=== PATIENT | male | born 2000 | race Caucasian/White ===

== ENCOUNTER 2021-10-01 23:46 | Emergency (ER) | payer MEDICAID, OTHER ==
[2021-10-01] MEDS ORDERED: Adenosine 6 MG/2 ML SDV IVPUSH ONE (23:59)
[2021-10-01] MEDS ORDERED: Ondansetron 4 MG/2 ML SDV IVPUSH ONE (23:59)
[2021-10-01] MEDS ORDERED: Sodium Chloride 0.9% 1,000 ML IV ONE (23:59)
[2021-10-02] MEDS ORDERED: Adenosine 6 MG/2 ML SDV IVPUSH ONE ×2 (00:11)
[2021-10-02] MEDS ORDERED: Metoprolol Tartrate 5 MG/5 ML SDV IVPUSH ONE (00:23)
[2021-10-02 00:43] LABS: BLOOD UREA NITROGEN,BUN 14 mg/dL (7.0-18.0); CARBON DIOXIDE,CO2 21.7 mmol/L (21.0-32.0); CHLORIDE,CL 99 mmol/L (98-107); GLUCOSE RANDOM 121 mg/dL (74-106); POTASSIUM,K 3.6 mmol/L (3.5-5.1); SODIUM,NA 140 mmol/L (136-148)
[2021-10-02 01:50] LABS: CORONAVIRUS COVID-19 NAA NEGATIVE (NEGATIVE); INFLUENZA A NAA NEGATIVE (NEGATIVE); INFLUENZA B NAA NEGATIVE (NEGATIVE)
== END 2021-10-02 01:59 | disposition home or self-care (01) ==
LOC: MW.ED 23:46
DX: I47.1 Supraventricular tachycardia (principal); Z20.822 Contact with and (suspected) exposure to COVID-19
CPT/HCPCS: 0240U; 36415; 80053; 83735; 84443; 84484; 85025; 93005; 96374; 96375; 99285; J0153; J2405; J3490; J7030

== ENCOUNTER 2022-08-12 07:59 | Emergency (ER) | payer MEDICAID ==
[2022-08-12] MEDS ORDERED: Dexamethasone 10 MG/ML SDV PO ONE (09:08)
[2022-08-12] MEDS ORDERED: Acetaminophen 325 MG Tab PO ONE (09:08)
[2022-08-12 09:43] LABS: CORONAVIRUS COVID-19 NAA NEGATIVE (NEGATIVE); INFLUENZA A NAA NEGATIVE (NEGATIVE); INFLUENZA B NAA NEGATIVE (NEGATIVE); RESPIRATORY SYNCYTIAL VIR NAA NEGATIVE (NEGATIVE)
== END 2022-08-12 10:24 | disposition home or self-care (01) ==
LOC: MW.ED 07:59
DX: J02.9 Acute pharyngitis, unspecified (principal); K21.9 Gastro-esophageal reflux disease without esophagitis; Z79.899 Other long term (current) drug therapy; Z20.822 Contact with and (suspected) exposure to COVID-19
CPT/HCPCS: 0241U; 87651; 99284; A9270; J8540

== ENCOUNTER 2024-12-15 12:43 | Day surgery (SDC) | payer MEDICAID, OTHER ==
[2024-12-15] MEDS ORDERED: Sodium Chloride 0.9% 2.5 ML Syringe FLUSH PRN (13:01)
[2024-12-15 13:15] LABS: BASOPHILS ABSOLUTE AUTO 0.02 K/uL (0.00-0.20); BASOPHILS PERCENT AUTO 0.2 % (0.0-1.0); EOSINOPHILS ABSOLUTE AUTO 0.04 K/uL (0.00-0.45); EOSINOPHILS PERCENT AUTO 0.5 % (0.0-6.0); IMMATURE GRAN ABSOLUTE AUTO 0.01 K/uL (0.00-0.05); IMMATURE GRAN PERCENT AUTO 0.1 % (0.0-0.4); LYMPHOCYTES ABSOLUTE AUTO 1.61 K/uL (1.00-4.80); LYMPHOCYTES PERCENT AUTO 18.4 % (24.0-44.0); MEAN PLATELET VOLUME 9.6 fL (9.4-12.4); MONOCYTES ABSOLUTE AUTO 0.53 K/uL (0.00-0.80); MONOCYTES PERCENT AUTO 6.1 % (0.0-8.0); NEUTROPHILS ABSOLUTE AUTO 6.55 K/uL (1.80-7.70); NEUTROPHILS PERCENT AUTO 74.7 % (41.0-71.0); NRBC ABSOLUTE 0.00 K/uL (0.00-0.02); NRBC PERCENT 0.0 /100WBC (0.0-0.2); PLATELET COUNT,PLT 242 K/uL (150-400); RED BLOOD CELL COUNT 5.55 M/uL (4.52-5.90); WHITE BLOOD CELL COUNT,WBC 8.76 K/uL (3.9-11.3)
[2024-12-15 13:29] LABS: APPEARANCE,URINE CLEAR; GLUCOSE,URINE NEGATIVE (NEGATIVE); OCCULT BLOOD,URINE NEGATIVE (NEGATIVE)
[2024-12-15 13:35] LABS: A/G RATIO 1.3 (0.9-1.6); ALANINE AMINOTRANSFERASE,ALT 47.0 IU/L (14-63); ASPARTATE AMNIOTRANSFERASE,AST 23.0 IU/L (15-37); BILIRUBIN TOTAL 0.8 mg/dL (0.2-1.0); BLOOD UREA NITROGEN,BUN 6.0 mg/dL (7.0-18.0); CARBON DIOXIDE,CO2 25.5 mmol/L (21.0-32.0); CHLORIDE,CL 103.0 mmol/L (98-107); CREATININE 0.9 mg/dL (0.8-1.3); EST CRCL DRUG DOSING (CG) 143.03 mL/min; GLUCOSE RANDOM 92.0 mg/dL (74-106); POTASSIUM,K 3.6 mmol/L (3.5-5.1); PROTEIN TOTAL,TP 7.9 g/dL (6.4-8.2); SODIUM,NA 140.0 mmol/L (136-148)
[2024-12-15 13:36] LABS: ESTIMATED GFR 122.0 mL/min (>60)
[2024-12-15] MEDS: Sodium Chloride 0.9% 10 ML Syringe FLUSH PRN (13:52)
[2024-12-15] MEDS ORDERED: Propofol 200 MG/20 ML SDV ONE (16:41)
[2024-12-15] MEDS ORDERED: Midazolam 1 MG/ML 2 ML SDV ONE (16:41)
[2024-12-15] MEDS ORDERED: fentaNYL 100 MCG/2 ML SDV ONE (16:41)
[2024-12-15] MEDS ORDERED: Dexamethasone 4 MG/ML 5 ML MDV ONE (16:42)
[2024-12-15] MEDS ORDERED: Ketorolac 30 MG/ML SDV ONE (16:42)
[2024-12-15] MEDS ORDERED: Ondansetron 4 MG/2 ML SDV ONE (16:42)
[2024-12-15] MEDS ORDERED: Ropivacaine 0.5% 5 MG/ML 30 ML SDV ONE (16:49)
[2024-12-15] MEDS ORDERED: Esmolol 100 MG/10 ML SDV ONE (17:17)
[2024-12-15] MEDS ORDERED: Ondansetron 4 MG/2 ML SDV IVPUSH PRN (19:00)
[2024-12-15] MEDS ORDERED: Acetaminophen/oxyCODONE 325-5 MG Tab PO PRN (19:00)
[2024-12-15] MEDS: Ketorolac 30 MG/ML SDV IVPUSH SCH (22:48)
[2024-12-15] MEDS: Lactated Ringers 1,000 ML IV SCH (22:50)
== END 2024-12-16 09:59 | disposition home or self-care (01) ==
LOC: MW.ED 12:43 → MW.SDS 16:18 → MW.MS 16:22 → MW.SDS 12-16 09:59
PROVIDERS: ATTEND Surgery
DX: K80.12 Calculus of gallbladder with acute and chronic cholecystitis without obstruction (principal); K21.9 Gastro-esophageal reflux disease without esophagitis; Z79.899 Other long term (current) drug therapy
CPT/HCPCS: 00790; 36415; 64488; 76705; 76705-26; 80053; 81003; 83690; 85025; 96361; 96374; 96375; 96376; 99284; 99285-25; J0665; J0690; J1100; J1171; J1805; J1885; J2003; J2250; J2270; J2405; J2543; J2704; J2795; J3010; J3490; J7030; J7120